=== PATIENT | male | born 1975 | race Caucasian/White ===

== ENCOUNTER 2017-02-25 12:59 | Observation (INO) | payer BC ==
--- NOTE | 2017-02-25 13:09 | CPEKG ---
Heart Rate: 119 RR Interval: 504 P-R Interval: 176 QRSD Interval: 122 QT Interval: 368 QTC Interval: 518 P [place]: 164 QRS [place]: 74 T Wave [place]: 50 EKG Severity - ABNORMAL ECG - EKG Impression: SINUS OR ECTOPIC ATRIAL TACHYCARDIA EKG Impression: RIGHT BUNDLE BRANCH BLOCK EKG Impression: CONSIDER LEFT VENTRICULAR HYPERTROPHY Electronically Signed By: Darlin Abrams 25-Feb-2017 20:04:28
[2017-02-25] MEDS ORDERED: ASPIRIN 81 MG CHEWABLE TAB PO ONE (13:27)
[2017-02-25] MEDS ORDERED: NS 500 ML IV ONE (13:27)
--- NOTE | 2017-02-25 13:27 | EDPHY ---
H & P Time Seen by Provider: 02/25/17 13:19 HPI/ROS: CHIEF COMPLAINT: "Atrial fibrillation " HISTORY OF PRESENT ILLNESS: Patient is a 41-year-old male with a history of paroxysmal atrial fibrillation. Patient has been followed by Dr. Crenshaw. He initially was treated with metoprolol but it had no affect. The patient states that on the metoprolol his frequency of atrial fibrillation actually increased. The patient went to see a physician in [place] for a 2nd opinion. He was prescribed flecainide on Tuesday. This morning he woke from sleep and then developed palpitations while laying down. He describes a "fish flopping in my chest. "The patient took flecainide 100 mg x2 tablets at 9:30 a.m. for the 1st time. This is as prescribed. Patient went to work and subsequently went for a walk at [facility]. He continued to have palpitations but while at [facility] his heart rate increased. He became lightheaded and dizzy. He denies chest pain or shortness of breath. No fevers or chills. No cough. REVIEW OF SYSTEMS: My complete review of systems is negative except as mentioned in the HPI. Past Medical/Surgical History: Includes atrial fibrillation Past surgical history: Includes clavicular surgery Social history: The patient does not smoke. No alcohol use. No drug use. He drank coffee this morning. Smoking Status: Never smoked Physical Exam: Vitals noted GENERAL: Well-appearing, in no acute distress, alert. HEENT: Eyes normal to inspection, normal pharynx, no signs of dehydration. NECK: No thyromegaly, no lymphadenopathy, supple. RESPIRATORY: Clear to auscultation bilaterally, no rales, rhonchi or wheezing. CVS: Regular rhythm and tachycardic, no rubs, murmurs, or gallops. ABDOMEN: Soft, nontender, nondistended, no organomegaly. BACK: Normal to inspection, no CVA tenderness. SKIN: Normal color, no rash, warm, dry. No pallor. EXTREMITIES: No pedal edema, no calf tenderness, no Homans sign or cords, no joint swelling. NEURO/PSYCH: Alert and oriented x3, normal mood and affect, normal motor sensory exam. No obvious cranial nerve deficit. Constitutional: Initial Vital Signs Temperature (C) 36.7 C 02/25/17 12:59 Heart Rate 120 H 02/25/17 12:59 Respiratory Rate 13 02/25/17 12:59 Blood Pressure 124/96 H 02/25/17 12:59 O2 Sat (%) 100 02/25/17 12:59 O2 Delivery Mode Nasal Cannula O2 (L/minute) 2 Allergies/Adverse Reactions: No Known Allergies Allergy (Unverified 05/06/13 09:31) Home Medications: Medication Instructions Recorded Aspirin [Aspirin 81mg (*)] 81 mg PO DAILY 02/25/17 Flecainide Acetate [Tambocor] 100 mg PO BID PRN 02/25/17 Herbals/Supplements -Info Only 1 ea PO DAILY 02/25/17 Medical Decision Making - Diagnostics Imaging Results: Imaging Impressions Chest X-Ray 02/25/17 13:27 Impression: 1. Clear lungs. No acute process. 2. Borderline cardiomegaly. ED Course/Re-evaluation: In the emergency department I discussed possible etiologies with the patient. I answered all his questions. EKG was obtained. Laboratory studies were ordered. Patient was given aspirin 324 mg orally. An old EKG was obtained. Cardiology. EKG: Regular rhythm at 119 a.m.. Normal axis. Right bundle branch block. ST elevation in II, III, AVF, V3-4 Patient was given aspirin 324 mg orally. 1330: I discussed the case with Cardiology (Park). They are reviewing EKG. I rechecked the patient. He is sitting comfortably in the bed. He has no chest pain. I discussed the plan and answered his questions. 1345: I was still waiting on a call back from Cardiology. I re-paged Cardiology and spoke with Dr. Meza. I sent him a picture of the EKG. He stated he had not seen the EKG or heard about the patient at this point. I updated the patient. No CP. 1357: Again discussed the case with Dr. meza. He recommends the patient received metoprolol 5 mg IV. He is aware of the flecainide and the patient's previous treatment with metoprolol. He also recommends an echocardiogram. He does not feel the patient needs to be taken directly to the cardiac catheterization lab at this point. This was ordered. Patient was given the metoprolol and his heart rate remained in the 120s. His troponin was negative. CBC chemistry normal. Repeat EKG: Regular rhythm at 1:21 a.m.. Incomplete right bundle-branch block with the QRS of 114. Ongoing ST elevation as with previous EKG. I discussed the case with the hospitalist service. Dr. Antoine will admit. Cardiac echo pending. I discussed the case with Park from cardiology. She was in the ED to evaluate the patient. Differential Diagnosis: My differential includes but is not limited to ACS, acute AR, atrial fibrillation, dysrhythmia, medication reaction, electrolyte abnormality, sugar abnormality Critical Care Time: The patient required 35 minutes of critical care time. This is exclusive of any unbundled procedure. This was due to the patient's need for frequent rechecks, abnormal EKG, consultation with Cardiology and Internal Medicine. - Data Points Laboratory Results: Laboratory Results 02/25/17 13:20 02/25/17 13:20 02/25/17 02/25/17 02/25/17 13:20 13:20 13:20 WBC 6.55 10^3/uL 10^3/uL (3.80-9.50) RBC 5.32 10^6/uL 10^6/uL (4.40-6.38) Hgb 17.4 g/dL g/dL (13.7-17.5) Hct 49.3 % % (40.0-51.0) MCV 92.7 fL fL (81.5-99.8) MCH 32.7 pg pg (27.9-34.1) MCHC 35.3 g/dL g/dL (32.4-36.7) RDW 12.8 % % (11.5-15.2) Plt Count 236 10^3/uL 10^3/uL (150-400) MPV 9.6 fL fL (8.7-11.7) Neut % (Auto) 54.5 % % (39.3-74.2) Lymph % (Auto) 35.9 % % (15.0-45.0) [place] % (Auto) 7.5 % % (4.5-13.0) Eos % (Auto) 1.1 % % (0.6-7.6) Baso % (Auto) 0.8 % % (0.3-1.7) Nucleat RBC Rel Count 0.0 % % (0.0-0.2) Absolute Neuts (auto) 3.58 10^3/uL 10^3/uL (1.70-6.50) Absolute Lymphs (auto) 2.35 10^3/uL 10^3/uL (1.00-3.00) Absolute Monos (auto) 0.49 10^3/uL 10^3/uL (0.30-0.80) Absolute Eos (auto) 0.07 10^3/uL 10^3/uL (0.03-0.40) Absolute Basos (auto) 0.05 10^3/uL 10^3/uL (0.02-0.10) Absolute Nucleated RBC 0.00 10^3/uL 10^3/uL (0-0.01) Immature Gran % 0.2 % % (0.0-1.1) Immature Gran # 0.01 10^3/uL 10^3/uL (0.00-0.10) PT 13.3 SEC SEC (12.0-15.0) INR 1.02 (0.83-1.16) APTT 27.8 SEC SEC (23.0-38.0) D-Dimer < 0.27 ug/mLFEU ug/mLFEU (0.00-0.50) Sodium 143 mEq/L mEq/L (134-144) Potassium 4.3 mEq/L mEq/L (3.5-5.2) Chloride 105 mEq/L mEq/L (97-110) Carbon Dioxide 24 mEq/l mEq/l (22-31) Anion Gap 14 mEq/L mEq/L (8-16) BUN 18 mg/dL mg/dL (7-23) Creatinine 1.0 mg/dL mg/dL (0.7-1.3) Estimated GFR > 60 Glucose 100 mg/dL mg/dL (70-100) Calcium 9.1 mg/dL mg/dL (8.5-10.4) Troponin I < 0.012 ng/mL ng/mL (0.000-0.034) Medications Given: Discontinued Medications Aspirin (Aspirin) 324 mg PO EDNOW ONE Stop: 02/25/17 13:28 Last Admin: 02/25/17 13:40 Dose: 324 mg Sodium Chloride (Ns) 500 mls @ 1,000 mls/hr IV EDNOW ONE PRN Reason: Protocol Stop: 02/25/17 13:56 Last Admin: 02/25/17 13:39 Dose: 500 mls Metoprolol Tartrate (Lopressor Injection) 5 mg IVP Q5M [facility] Stop: 02/25/17 14:11 Last Admin: 02/25/17 14:32 Dose: Not Given Departure - Departure Disposition: [facility] Inpatient Acute Clinical Impression: Palpitations, Tachycardia, Abnormal EKG Condition: Good
[2017-02-25 13:33] LABS: % IMMATURE GRANULYOCYTES 0.2 % (0.0-1.1); ABSOLUTE IMMATURE GRANULOCYTES 0.01 10^3/uL (0.00-0.10); ADD DIFF? NO; ADD MORPH? NO; ADD SCAN? NO; ATYPICAL LYMPHOCYTE FLAG 10 (0-99); FRAGMENT RBC FLAG 0 (0-99); HEMATOCRIT 49.3 % (40.0-51.0); HEMOGLOBIN 17.4 g/dL (13.7-17.5); LEFT SHIFT FLG 0 (0-99); LIPEMIA HEMOLYSIS FLAG 90 (0-99); MEAN CELL HEMOGLOBIN 32.7 pg (27.9-34.1); MEAN CELL HEMOGLOBIN CONCENTR. 35.3 g/dL (32.4-36.7); MEAN CELL VOLUME 92.7 fL (81.5-99.8); MEAN PLATELET VOLUME 9.6 fL (8.7-11.7); PLATELET CLUMPS FLAG 0 (0-99); PLATELET COUNT 236 10^3/uL (150-400); RED BLOOD CELL COUNT 5.32 10^6/uL (4.40-6.38); RED CELL DISTRIBUTION WIDTH 12.8 % (11.5-15.2)
[2017-02-25 13:39] LABS: ANION GAP 14 mEq/L (8-16); CALCIUM 9.1 mg/dL (8.5-10.4); CARBON DIOXIDE 24 mEq/l (22-31); CHLORIDE 105 mEq/L (97-110); GLOMERULAR FILTRATION RATE > 60; GLUCOSE 100 mg/dL (70-100); POTASSIUM 4.3 mEq/L (3.5-5.2); SODIUM 143 mEq/L (134-144)
[2017-02-25 13:42] LABS: APTT 27.8 SEC (23.0-38.0); INR 1.02 (0.83-1.16); PROTIME(PATIENT) 13.3 SEC (12.0-15.0)
[2017-02-25 13:50] LABS: TROPONIN I < 0.012 ng/mL (0.000-0.034)
[2017-02-25] MEDS: METOPROLOL TARTRATE 5 MG/5 ML INJ IVP SCH ×2 (14:09→14:32)
--- NOTE | 2017-02-25 14:44 | CPEKG ---
Heart Rate: 121 RR Interval: 496 QRSD Interval: 114 QT Interval: 352 QTC Interval: 500 QRS [place]: 64 T Wave [place]: 17 EKG Severity - ABNORMAL ECG - EKG Impression: A-FLUTTER W/ VARIED AV BLOCK, A-RATE 241 EKG Impression: INCOMPLETE RIGHT BUNDLE BRANCH BLOCK EKG Impression: LEFT VENTRICULAR HYPERTROPHY Electronically Signed By: Darlin Abrams 25-Feb-2017 20:04:28
[2017-02-25] MEDS ORDERED: DILTIAZEM 125 MG in D5W 125 ML IV SCH (15:30)
[2017-02-25] MEDS ORDERED: FLECAINIDE ACETATE 100 MG TAB PO PRN (15:45)
[2017-02-25] MEDS ORDERED: oxyCODONE IR 5 MG TAB PO PRN (15:46)
[2017-02-25] MEDS ORDERED: ONDANSETRON 4 MG/2 ML VIAL IVP PRN (15:46)
[2017-02-25] MEDS ORDERED: ONDANSETRON DISINTEGRATING 4 MG TAB PO PRN (15:46)
[2017-02-25] MEDS ORDERED: ALBUTEROL 3 ML DEYVIAL IH PRN (15:46)
[2017-02-25] MEDS ORDERED: ACETAMINOPHEN 325 MG TAB PO PRN (15:46)
--- NOTE | 2017-02-25 16:14 | ECHO ---
[email or web address] [address] [address] Main: [phone] Fax: [email or web address] Echocardiogram Name: DANYELLE CAMACHO MR#: [id number] Study Date: 02/25/2017 Study Time: 03:26 PM Date of : 1975 Age: 41 year(s) Height: 177.8 cm (70 in.) Weight: 74.84 kg (165 lb.) BSA: 1.92 m2 Gender: Male Examination: Echo Indication: Atrial Flutter Image Quality: Contrast: Requested by: Darlin Abrams BP: 115 mmHg/60 mmHg Heart Rate: Rhythm: Atrial flutter Indication: Atrial Flutter Procedure Staff Dye Weigher: [place] Reading Physician: Stoney Han Requesting Provider: Conclusions: Low normal left ventricular systolic function. EF is 54 %. Mild to moderate mitral regurgitation. The aortic valve is normal in appearance and function. No pericardial effusion. Measurements: Chambers Valvular Assessment AV/MV Valvular Assessment TV/PV Normal Normal Normal Name Value Range Name Value Range Name Value Range IVSd (2D): 1.4 cm (0.6 cm-1.1 AV Vmax: 0.86 m/s (1 m/s-1.7 TR Vmax: 1.49 mm/s ( - ) cm) m/s) TR PGmax: 9 mmHg ( - ) LVDd (2D): 4.7 cm (4.2 cm-5.9 AV maxP mmHg ( - ) PV Vmax: 0.56 m/s (0.6 m/s-0.9 cm) LVOT Vmax: 0.68 m/s (0.7 m/s-1.1 m/s) LVDs (2D): 3.5 cm (2.1 cm-4 m/s) PV PGmax: 1 mmHg ( - ) cm) LVPWd (2D): 1.4 cm (0.6 cm-1 cm) LVEF (BP): 54 % (>=55 %) RVDd(2D): 4.0 cm (1.9 cm-3.8 cmmm) Continued Measurements: Chambers Name Value LADs Lon.0 cm LA Area: 22.8 cm2 LA Volume: 86 ml LA Volume Index: 44.8 ml/m2 Patient: DANYELLE CAMACHO Study Date: 02/25/2017 Page 1 of 2 03:26 PM TAPSE: 1.3 cm RA Area: 19.0 cm2 Additional Vessels Name Value Ao Ascendin.7 cm Findings: Left Ventricle: Normal size left ventricle. Mild to moderate LVH. Low normal left ventricular systolic function. EF is 54 %. No regional wall motion abnormality. Unable to assess diastolic dysfunction. Heavily trabeculated LV and prominient papillary muscles. Flase tendon noted.. Right Ventricle: Upper normal size right ventricle. Normal RV function. Left Atrium: The left atrium is moderately dilated. Right Atrium: The right atrium is mildly dilated. Mitral Valve: The mitral valve is normal in appearance. There is mild thickening of the mitral valve leaflets. Mild to moderate mitral regurgitation. Aortic Valve: The aortic valve is normal in appearance and function. The aortic valve is tri-leaflet. There is no aortic valve regurgitation. No aortic valve stenosis is present. Tricuspid Valve: The tricuspid valve appears normal. Trivial tricuspid valve regurgitation. Pulmonary artery pressure is not obtained due to inadequate TR jet. Pulmonic Valve: The pulmonic valve is normal in appearance and function. Aorta: Normal size ascending aorta measuring 3.7 cm. Pericardium: No pericardial effusion. (No Signature Object) Patient: DANYELLE CAMACHO Study Date: 02/25/2017 Page 2 of 2 03:26 PM [id number]
--- NOTE | 2017-02-25 16:56 | PDGENHP ---
History and Physical - Chief Complaint palpitations - History of Present Illness Patient is a 41-year-old male with a history of paroxysmal atrial fibrillation x 3 years. Patient is followed by Dr. Crenshaw. In the past he reports being treated with metoprolol but it had no effect. The patient states that on the metoprolol his frequency of atrial fibrillation actually increased. The patient went to see a physician in [place] for a 2nd opinion prescribed flecainide on Tuesday PRN Afib. This morning he woke from sleep and was in Afib and took Flecainide which he reports made him worse. He denies chest pain or shortness of breath. No fevers or chills. No cough. In the E.D., Cards was consulted. He was initially started on Metoprolol IV and then Cardizem IV. He is still tachycardic which appears to be sinus tach. He no longer reports palpitations or fluttering. Trop Negative. HR: 120's No Resp sx's No hx of ETOH No hx of Hyperthyroidism No illicit drug use No tobacco use No significant caffeine use, although he had coffee this morning TTE is pending PMHX: atrial fibrillation Past surgical history: Includes clavicular surgery Social history: The patient does not smoke. No alcohol use. No drug use. FMHX: RI History Information - Allergies/Home Medication List Allergies/Adverse Reactions: No Known Allergies Allergy (Unverified 05/06/13 09:31) Home Medications: Aspirin [Aspirin 81mg (*)] 81 mg PO DAILY 02/25/17 [Last Taken 02/25/17] Flecainide Acetate [Tambocor] 100 mg PO BID PRN 02/25/17 [Last Taken 02/25/17] Herbals/Supplements -Info Only 1 ea PO DAILY 02/25/17 [Last Taken Unknown] I have personally reviewed and updated: medical history, social history - Social History Smoking Status: Never smoked Review of Systems Review of Systems: ROS: 10pt was reviewed & negative except for what was stated in HPI & below Physical Exam Physical Exam: Temp Pulse Resp BP Pulse Ox 36.9 C 124 H 17 100/78 97 02/25/17 16:35 02/25/17 16:35 02/25/17 16:35 02/25/17 16:35 02/25/17 16:35 O2 (L/minute) 2 Constitutional: no apparent distress, appears nourished Eyes: PERRL, EOMI Ears, Nose, Mouth, Throat: moist mucous membranes, hearing normal Cardiovascular: tachycardia, No JVD, No edema Respiratory: no respiratory distress, no rales or rhonchi, clear to auscultation Gastrointestinal: normoactive bowel sounds, soft, non-tender abdomen Skin: warm Musculoskeletal: full muscle strength Neurologic: AAOx3 Psychiatric: interacting appropriately, not anxious, not encephalopathic Lab Data & Imaging Review 02/25/17 13:20 02/25/17 13:20 WBC 6.55 10^3/uL (3.80-9.50) 02/25/17 13:20 RBC 5.32 10^6/uL (4.40-6.38) 02/25/17 13:20 Hgb 17.4 g/dL (13.7-17.5) 02/25/17 13:20 Hct 49.3 % (40.0-51.0) 02/25/17 13:20 MCV 92.7 fL (81.5-99.8) 02/25/17 13:20 MCH 32.7 pg (27.9-34.1) 02/25/17 13:20 MCHC 35.3 g/dL (32.4-36.7) 02/25/17 13:20 RDW 12.8 % (11.5-15.2) 02/25/17 13:20 Plt Count 236 10^3/uL (150-400) 02/25/17 13:20 MPV 9.6 fL (8.7-11.7) 02/25/17 13:20 Neut % (Auto) 54.5 % (39.3-74.2) 02/25/17 13:20 Lymph % (Auto) 35.9 % (15.0-45.0) 02/25/17 13:20 [place] % (Auto) 7.5 % (4.5-13.0) 02/25/17 13:20 Eos % (Auto) 1.1 % (0.6-7.6) 02/25/17 13:20 Baso % (Auto) 0.8 % (0.3-1.7) 02/25/17 13:20 Nucleat RBC Rel Count 0.0 % (0.0-0.2) 02/25/17 13:20 Absolute Neuts (auto) 3.58 10^3/uL (1.70-6.50) 02/25/17 13:20 Absolute Lymphs (auto) 2.35 10^3/uL (1.00-3.00) 02/25/17 13:20 Absolute Monos (auto) 0.49 10^3/uL (0.30-0.80) 02/25/17 13:20 Absolute Eos (auto) 0.07 10^3/uL (0.03-0.40) 02/25/17 13:20 Absolute Basos (auto) 0.05 10^3/uL (0.02-0.10) 02/25/17 13:20 Absolute Nucleated RBC 0.00 10^3/uL (0-0.01) 02/25/17 13:20 Immature Gran % 0.2 % (0.0-1.1) 02/25/17 13:20 Immature Gran # 0.01 10^3/uL (0.00-0.10) 02/25/17 13:20 PT 13.3 SEC (12.0-15.0) 02/25/17 13:20 INR 1.02 (0.83-1.16) 02/25/17 13:20 APTT 27.8 SEC (23.0-38.0) 02/25/17 13:20 D-Dimer < 0.27 ug/mLFEU (0.00-0.50) 02/25/17 13:20 Sodium 143 mEq/L (134-144) 02/25/17 13:20 Potassium 4.3 mEq/L (3.5-5.2) 02/25/17 13:20 Chloride 105 mEq/L (97-110) 02/25/17 13:20 Carbon Dioxide 24 mEq/l (22-31) 02/25/17 13:20 Anion Gap 14 mEq/L (8-16) 02/25/17 13:20 BUN 18 mg/dL (7-23) 02/25/17 13:20 Creatinine 1.0 mg/dL (0.7-1.3) 02/25/17 13:20 Estimated GFR > 60 02/25/17 13:20 Glucose 100 mg/dL (70-100) 02/25/17 13:20 Calcium 9.1 mg/dL (8.5-10.4) 02/25/17 13:20 Magnesium 2.2 mg/dL (1.6-2.3) 02/25/17 Unknown Troponin I < 0.012 ng/mL (0.000-0.034) 02/25/17 13:20 Assessment & Plan Assessment: #Afib/Aflutter #Abnormal EKG (Acute), ?ST elevation, No CP, No elevated troponin #Palpitations Plan: Observation Cards consulted, await reccs Cont cardizem IV TTE is pending 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
--- NOTE | 2017-02-25 22:49 | GCON ---
[f rep st] CONSULTATION DATE OF CONSULTATION: 02/25/2017 REASON FOR CONSULTATION: We were asked by Dr. Abrams of the emergency department to evaluate this patient for his atrial flutter. HISTORY OF PRESENT ILLNESS: The patient is a 41-year-old male with a history of paroxysmal atrial fibrillation and flutter. He has been seen by Dr. Crenshaw in our office. More recently, he had seen Dr. Caceres with [facility] who had recommended a rilp-vm-xfubha approach with flecainide. This morning, he awoke at approximately 5 a.m. and noted that he was in flutter. He proceeded to take 200 mg of flecainide. He then started to note lightheadedness. He continued to note palpitations. He presented to the emergency department and was found to be in atrial flutter with rapid ventricular rates. He denies any chest pains or vinay syncope. Typically, his A-flutter episodes are much shorter and this is the only one, to his recollection, that has lasted several hours. PAST MEDICAL HISTORY: 1. Atrial flutter. 2. Paroxysmal atrial fibrillation. 3. Patellar tendinitis. REVIEW OF SYSTEMS: As per HPI. A complete 10-point review of systems was obtained and is negative except for what is dictated. MEDICATIONS: Outpatient medications include flecainide and aspirin. ALLERGIES: No known drug allergies. FAMILY HISTORY: There is no significant family history of coronary artery disease. SOCIAL HISTORY: Patient is . He denies any significant alcohol use. He is a nonsmoker. PAST SURGICAL HISTORY: Clavicular surgery. PHYSICAL EXAMINATION: VITAL SIGNS: BP of 112/93, heart rate of 124, respirations 17, O2 saturation 100% on 2 L/minute, temperature of 97.7 degrees Fahrenheit. GENERAL: He is a very pleasant male in no apparent distress. HEENT: Head is normocephalic, atraumatic. Eyes are without scleral icterus. Mucous membranes are moist. HEART: Tachycardic with a 2/6 to 3/6 systolic ejection murmur. LUNGS: Clear. ABDOMEN: Soft with normoactive bowel sounds. SKIN: Warm and dry. PSYCH: Normal mood and affect for given situation. NEURO: No focal deficits detected. LABORATORY: CBC with WBC 6.55, hemoglobin 17.4, hematocrit 49.3, platelet count 236. BMP with sodium 143, potassium 4.3, chloride 105, CO2 of 24, BUN 18 , creatinine 1, glucose of 100. Troponin less than 0.012. D-dimer less than 0.27. A 12-lead ECG, personally interpreted, demonstrates atrial flutter with a 2:1 conduction, LVH by voltage, and an incomplete right bundle branch block. Chest x-ray shows no acute process. I spoke with Dr. Abrams regarding patient' s care. IMPRESSION AND PLAN: The patient is a 41-year-old male presenting to the emergency department with atrial flutter starting likely this morning. He has tried a ovhf-dn-vrxjef approach with flecainide, which failed to convert him to sinus rhythm. He will be admitted for observation and rate control. He is being started on a diltiazem drip at this point. His [id number] is 0 and therefore, he may be continued on only aspirin therapy. He may follow up with electrophysiology as an outpatient to discuss whether he would be an ablation candidate. /[id number]/MODL MTDD
[2017-02-26 06:25] LABS: % IMMATURE GRANULYOCYTES 0.2 % (0.0-1.1); ABSOLUTE IMMATURE GRANULOCYTES 0.01 10^3/uL (0.00-0.10); ADD DIFF? NO; ADD MORPH? NO; ADD SCAN? NO; ATYPICAL LYMPHOCYTE FLAG 20 (0-99); FRAGMENT RBC FLAG 0 (0-99); HEMATOCRIT 47.7 % (40.0-51.0); HEMOGLOBIN 16.4 g/dL (13.7-17.5); LEFT SHIFT FLG 0 (0-99); LIPEMIA HEMOLYSIS FLAG 90 (0-99); MEAN CELL HEMOGLOBIN 31.7 pg (27.9-34.1); MEAN CELL HEMOGLOBIN CONCENTR. 34.4 g/dL (32.4-36.7); MEAN CELL VOLUME 92.3 fL (81.5-99.8); MEAN PLATELET VOLUME 9.3 fL (8.7-11.7); PLATELET CLUMPS FLAG 0 (0-99); PLATELET COUNT 218 10^3/uL (150-400); RED BLOOD CELL COUNT 5.17 10^6/uL (4.40-6.38); RED CELL DISTRIBUTION WIDTH 12.5 % (11.5-15.2)
[2017-02-26 06:50] LABS: ANION GAP 10 mEq/L (8-16); CALCIUM 9.3 mg/dL (8.5-10.4); CARBON DIOXIDE 23 mEq/l (22-31); CHLORIDE 109 mEq/L (97-110); GLOMERULAR FILTRATION RATE > 60; GLUCOSE 88 mg/dL (70-100); POTASSIUM 4.3 mEq/L (3.5-5.2); SODIUM 142 mEq/L (134-144)
[2017-02-26 08:29] VITALS: TEMP 98.2
[2017-02-26] MEDS ORDERED: ATROPINE SULFATE 1 MG/10 ML SYR IVP ONE (08:50)
[2017-02-26] MEDS ORDERED: NS 1,000 ML IV ONE (08:50)
[2017-02-26] MEDS ORDERED: NS 500 ML IV ONE (08:53)
[2017-02-26] MEDS ORDERED: ENOXAPARIN 40 MG/0.4 ML SYR SC SCH (09:00)
[2017-02-26] MEDS ORDERED: APIXABAN 5 MG TAB PO SCH (09:00)
[2017-02-26] MEDS ORDERED: ASPIRIN 81 MG CHEWABLE TAB PO SCH (09:00)
--- NOTE | 2017-02-26 09:57 | PDCARPN ---
Cardiology Progress Note Chief Complaint: Patient report lightheadedness and fatigue Assessment/Plan: Assessment: 41-year-old male with history of paroxysmal atrial fibrillation, and atrial flutter. In past has been seen by Dr. Crenshaw of our electrophysiology services in the past, more recently seen by electrophysiology Services in [place]. They had instituted him on flecainide pill in the pocket approach for controlling AFib. Yesterday reporting around 6:00 a.m., feeling heart rate racing, shortness of breath, lightheadedness, similar symptoms of when he was in AFib in the past. Took flecainide , with no resolution symptoms, reporting significant lightheadedness, near-syncope, came to the emergency department. Found to be in atrial flutter with rapid ventricular response. Echocardiogram done 02/25 showing normal LV size, [id number] LVH, low normal LV systolic function with EF 54% with no regional wall motion abnormalities. LA was mildly dilated, RA is mildly dilated, [id number] MR. laboratory studies drawn in the emergency department showing no anemia, negative D-dimer, normal electrolyte and renal function. Patient has had 3 troponin levels drawn, all within normal limits. TSH level on 02/26 was 0.801 Patient started on diltiazem drip, with rate control in the emergency department, per nursing staff, diltiazem titrate to off last night. This morning, a flutter rate up to 130s, reinstituted on diltiazem, patient noted to be hypotensive with systolic blood pressure down to 79. Patient reporting lightheadedness, shortness of breath, denying of chest pain or pressure. Physical examination, no signs of heart failure. Plan: 1. Persistent atrial flutter: Patient has been maintaining atrial flutter for greater than 24 hours, despite medical therapy, has not self converted back into sinus rhythm. With faster ventricular rates , is noted to be hypotensive, and lightheaded. After discussing with Dr. North, is felt best that patient be scheduled for urgent DOTTIE/cardioversion. Risks and benefits of this procedure were explained to the patient, he verbalizes understanding, and is wanting to proceed. After cardioversion, I would consider placing patient on diltiazem orally for maintenance dosage. As for long-term , I do think it would be beneficial for him to either be seen by Dr. Crenshaw or his shaker tender in [place] as an outpatient, with consideration of further evaluation EP procedure or be placed on long-term antiarrhythmics. He does have a chads Vasc score of 1 , but with cardioversion, and being placed at a higher risk for thrombotic event within the 1st 3-4 weeks, we will place him on anticoagulation of Eliquis. Risks and benefits of full anticoagulation therapy and Eliquis discussed with the patient, he verbalizes understanding to proceed. 2. Hypotension: Patient noted to be mildly hypotensive this morning with fast ventricular rates in atrial flutter. I have ordered for him to get a 1 time 500 mL IV fluid bolus. Will continue him on diltiazem drip to help reduce his rate. Plan DOTTIE/CV as mentioned above. 3. Moderate MR: Patient appears to be fairly euvolemic, potentially MR was worsen with his atrial flutter, cardioversion as mentioned above. Consideration repeating echo in 6 months to year. Sooner if he becomes symptomatic. 02/26/17 09:54 Subjective: Denies any cp. Report some SOB, lightheadedness and fatigue. Denies symptoms suggestives TIA/CVA Reviewed/Discussed With: hospitalist (Dr Black), other (Dr North) Objective: Vital Signs (8 Hrs) Temp Pulse Resp BP Pulse Ox 02/26/17 08:20 36.8 C 135 H 16 79/52 L 96 02/26/17 06:38 133 H 02/26/17 04:00 36.5 C 116 H 18 106/65 98 Intake/Output (24 Hrs) 02/25/17 02/26/17 02/27/17 05:59 05:59 05:59 Intake Total 465 Balance 465 Intake: Oral (ml) 450 IV Infused (ml) 15 Diltiazem 125 mg In D5w 15 125 ml @ Per Protocol IV CONT ELIANA Rx#:[id number] Other: Weight 74.843 kg Number of Voids Toilet 1 Result Diagrams: 02/26/17 06:17 02/26/17 06:17 Cardiac Labs: Cardiac Lab Results (72 Hrs) 02/25/17 02/25/17 23:50 19:18 Troponin I 0.016 0.013 - Physical Exam Constitutional: WDWN, healthy appearing, no apparent distress Ears, Nose, Mouth, Throat: moist mucous membranes Cardiovascular: no murmurs, irregularly irregular (A-flutter), pulses symmetric bilat, No jugular vein distention Peripheral Pulses: 2+: carotid (R), carotid (L), dorsalis-pedis (R), dorsalis- pedis (L) Respiratory: clear to auscultate bilat, no crackles, no wheezes Gastrointestinal: normoactive bowel sounds Skin: no rashes, warm, no edema Neurologic: AAOx3 Psychiatric: cooperative, following commands, anxious ICD10 Worksheet Patient Problems: Problems Problem Status Onset Palpitations Acute Tachycardia Acute Abnormal EKG Acute
[2017-02-26] MEDS ORDERED: PROPOFOL/EMULSION 500 MG/50 ML BOTTLE IV ONE (10:55)
--- NOTE | 2017-02-26 11:12 | PDANEPAE ---
ANE History of Present Illness 41 year old male w/ a. fib/flutter for DOTTIE/CV. ANE Past Medical History - Cardiovascular History Hx Hypertension: No Hx Arrhythmias: Yes Hx Chest Pain: No Hx Coronary Artery / Peripheral Vascular Disease: No Hx CHF / Valvular Disease: Yes Hx Palpitations: Yes - Pulmonary History Hx COPD: No Hx Asthma/Reactive Airway Disease: No Hx Recent Upper Respiratory Infection: No Hx Oxygen in Use at Home: No Hx Sleep Apnea: No - Endocrine History Hx Diabetes: No Hypothyroid: No Hyperthyroid: No Obesity: no - Renal History Hx Renal Disorders: No - Liver History Hx Hepatic Disorders: No - Neurological & Psychiatric Hx Hx Neurological and Psychiatric Disorders: No - Cancer History Hx Cancer: No - Congenital Disorder History Hx Congenital Disorders: No - GI History GERD: no Hx Gastrointestinal Disorders: No ANE Review of Systems Review of systems is: negative Review of Systems: - Exercise capacity Exercise capacity: >=4 METS ANE Patient History - Allergies Allergies/Adverse Reactions: No Known Allergies Allergy (Unverified 05/06/13 09:31) - Home Medications Home medications: home medication list seen and reviewed Home Medications: Aspirin [Aspirin 81mg (*)] 81 mg PO DAILY 02/25/17 [Last Taken 02/25/17] Flecainide Acetate [Tambocor] 100 mg PO BID PRN 02/25/17 [Last Taken 02/25/17] Herbals/Supplements -Info Only 1 ea PO DAILY 02/25/17 [Last Taken Unknown] - NPO status NPO Status: no food or drink >8 hours - Anes Hx Anes Hx: no prior problems - Smoking Hx Smoking Status: Never smoked Marijuana use: No - Alcohol Use Alcohol Use: None - Family Anes Hx Family Anes Hx: neg - N/A ANE Labs/Vital Signs - Labs Result Diagrams: 02/26/17 06:17 02/26/17 06:17 - Vital Signs Vital Signs: reviewed preoperatively; see RN documention for details Blood Pressure: 79/52 Heart Rate: 135 Respiratory Rate: 16 O2 Sat (%): 96 Height: 177.8 cm Weight: 74.843 kg ANE Physical Exam - Airway Neck exam: FROM Mallampati Score: Class 2 Mouth exam: normal dental/mouth exam - Pulmonary Pulmonary: no respiratory distress - Cardiovascular Cardiovascular: irregularly irregular - ASA Status ASA Status: III ANE Anesthesia Plan Anesthesia Plan: GA with mask Total IV Anesthesia: Yes
--- NOTE | 2017-02-26 11:44 | PDTEE1 ---
DOTTIE Cardioversion Procedure Indications: atrial fibrillation Consent: signed and in chart Anticoagulation: álvaro Procedural Details: Pads were placed in anterior-posterior position. DOTTIE probe was advanced and standard images obtained. There is no evidence of left atrial or left atrial appendage thrombus. Conclusions: successful DOTTIE (The patient converted to NSR during intubation with the DOTTIE probe.) Patient Problems: Problems Problem Status Onset Abnormal EKG Acute Palpitations Acute Tachycardia Acute
--- NOTE | 2017-02-26 12:01 | POSTANESTH ---
Post Anesthetic Evaluation Cardiovascular Status: Normal, Stable, Similar to Pre-Op Cond Respiratory Status: Normal, Stable, Similar to Pre-op Cond. Level of Consciousness/Mental Status: Can Participate in Eval, Alert and Oriented Pain Control: Adequate, Prn Tx Ordered Nausea/Vomiting Control: Adequate, Prn Tx Ordered Complications Possibly Related to Anesthesia: None Noted (Likely discharge home today.)
--- NOTE | 2017-02-26 12:04 | CPEKG ---
Heart Rate: 59 RR Interval: 1017 P-R Interval: 192 QRSD Interval: 100 QT Interval: 440 QTC Interval: 436 P [place]: 26 QRS [place]: 63 T Wave [place]: 37 EKG Severity - ABNORMAL ECG - EKG Impression: SINUS RHYTHM EKG Impression: LEFT VENTRICULAR HYPERTROPHY EKG Impression: ANTERIOR ST ELEVATION, PROBABLY DUE TO LVH Electronically Signed By: Andrei Lovell 28-Feb-2017 11:52:23
--- NOTE | 2017-02-26 14:13 | GDS ---
[f rep st] DISCHARGE SUMMARY FINAL DIAGNOSES: 1. Paroxysmal atrial fibrillation and flutter, presented with rapid ventricular response. 2. Mitral regurgitation. 3. [id number] left ventricular hypertrophy. HOSPITAL COURSE: A 41-year-old man who presented with palpitations. He has a history of paroxysmal atrial fibrillation. He has seen Dr. Crenshaw here and went to see a second side laster staple in [place] for a second opinion. He was given flecainide as a enpo-na-jar-pocket strategy, which made him feel very poorly; thus, he presented to the emergency department. He was placed on a diltiazem drip over night. Cardiology recommended DOTTIE cardioversion, as he had not converted. During the DOTTIE, he conver maxim on his own. I have discussed all of his plans with Cardiology. We will place him on extended-release diltiazem 120 mg. We will give him Eliquis for 30 days given h is recent conversion. He should follow up with the side laster staple of his choice. This should b e in 1 week. I discussed all of this with both him and his . /[id number]/MODL
--- NOTE | 2017-02-26 14:46 | ASMTCMCOM ---
CM Note CM Note Notes: Pt to DC with no DC needs today. Date Signed: 02/26/2017 02:46 PM Electronically Signed By:Ema Mccarty LCSW
--- NOTE | 2017-02-26 14:53 | ASDISCHSUM ---
Discharge Information Plan Status:Home with No Needs Medically Cleared to Leave:02/26/2017 Discharge Date:02/26/2017 CM D/C Disposition:Home, Routine, Self-Care ADT D/C Disposition:Home, Routine, Self-Care Projected Discharge Date:02/26/2017 Transportation at D/C:Family Discharge Delay Reason: Follow-Up Date:02/26/2017 Discharge Slot:2 - 12:01 pm - 18:00 pm Final Diagnosis:Paraoxysmal afib and aflutter w/ RVR, mitral regurg, mid-mod left ventricular hypert rophy Placement Information Patient Contact Information Contact Name:MAGO Relationship: Address:[address] City:[place] Alternate Phone: State/Zip Code:[place] [address] Email: Financial Information Financial Class:HMO and PPO Plans Primary Plan Desc: OUT [facility] PPO Primary Plan Number:[id number] Secondary Plan Desc: Secondary Plan Number: Assessment Information [facility] CM Progress Note CM Note CM Note Notes: Pt to DC with no DC needs today. Date Signed: 02/26/2017 02:46 PM Electronically Signed By:Ema Mccarty LCSW Intervention Information
[2017-02-26 15:50] VITALS: BP 88/68; PULSE 55; RESP 18; O2SAT 99
[2017-02-26] MEDS ORDERED: DILTIAZEM CD 120 MG CAP PO SCH (22:00)
== END 2017-02-26 14:58 | disposition home or self-care (01) ==
LOC: EDUNIT# → F2W 16:23
PROVIDERS: ADMIT Family Medicine; ATTEND Student in an Organized Health Care Education/Training Program
PROC: B245ZZ4 Ultrasonography of Left Heart, Transesophageal (ICD-10-PCS; principal; 2017-02-25)
DX: I48.92 Unspecified atrial flutter (principal); I48.0 Paroxysmal atrial fibrillation; I34.0 Nonrheumatic mitral (valve) insufficiency; I51.7 Cardiomegaly
CPT/HCPCS: 71010; 93005; 93306; 96360; 99291; G0378; J2704

== ENCOUNTER 2017-03-26 13:37 | Observation (INO) | payer BC ==
[2017-03-26] MEDS ORDERED: ONDANSETRON 4 MG/2 ML VIAL ONE ×2 (14:56→17:42)
[2017-03-26] MEDS ORDERED: fentaNYL 100 MCG/2 ML INJ ONE (14:56)
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
[2017-03-26] MEDS ORDERED: fentaNYL 100 MCG/2 ML INJ IVP ONE ×2 (15:04→15:42)
[2017-03-26] MEDS ORDERED: ONDANSETRON 4 MG/2 ML VIAL IVP ONE (15:04)
[2017-03-26] MEDS ORDERED: NS 1,000 ML IV ONE ×2 (15:04→17:41)
[2017-03-26 15:23] LABS: % IMMATURE GRANULYOCYTES 0.4 % (0.0-1.1); ABSOLUTE IMMATURE GRANULOCYTES 0.06 10^3/uL (0.00-0.10); ADD DIFF? NO; ADD MORPH? NO; ADD SCAN? NO; ATYPICAL LYMPHOCYTE FLAG 0 (0-99); FRAGMENT RBC FLAG 0 (0-99); HEMATOCRIT 46.2 % (40.0-51.0); HEMOGLOBIN 16.3 g/dL (13.7-17.5); LEFT SHIFT FLG 0 (0-99); LIPEMIA HEMOLYSIS FLAG 90 (0-99); MEAN CELL HEMOGLOBIN CONCENTR. 35.3 g/dL (32.4-36.7); MEAN CELL VOLUME 90.6 fL (81.5-99.8); MEAN PLATELET VOLUME 9.4 fL (8.7-11.7); PLATELET CLUMPS FLAG 0 (0-99); PLATELET COUNT 226 10^3/uL (150-400); RED CELL DISTRIBUTION WIDTH 12.5 % (11.5-15.2)
[2017-03-26 15:32] LABS: INR 1.16 (0.83-1.16)
[2017-03-26 15:33] LABS: APTT 26.4 SEC (23.0-38.0)
[2017-03-26 15:37] LABS: ANION GAP 15 mEq/L (8-16); CALCIUM 9.5 mg/dL (8.5-10.4); CARBON DIOXIDE 25 mEq/l (22-31); CHLORIDE 103 mEq/L (97-110); GLOMERULAR FILTRATION RATE > 60; GLUCOSE 119 mg/dL (70-100); POTASSIUM 3.7 mEq/L (3.5-5.2); SODIUM 143 mEq/L (134-144)
[2017-03-26] MEDS ORDERED: LET GEL TOPICAL 1 EA SYR TP ONE (15:50)
[2017-03-26] MEDS ORDERED: HYDROmorphONE/DILAUDID 1 MG/ML INJ IVP ONE ×2 (16:27→17:41)
[2017-03-26] MEDS ORDERED: IOPAMIDOL (ISOVUE-300) 100 ML BTL ONE (16:39)
[2017-03-26 16:43] LABS: CK-MB INTERPRETATION NEGATIVE (NEGATIVE)
[2017-03-26 16:49] LABS: CREATINE KINASE-MB FRACTION 6.48 ng/mL (0.00-3.19)
[2017-03-26] MEDS ORDERED: HYDROmorphONE/DILAUDID 1 MG/ML INJ ONE (17:43)
[2017-03-26] MEDS ORDERED: NALOXONE HCL 0.4 MG/ML INJ IVP PRN (19:23)
[2017-03-26] MEDS ORDERED: ACETAMINOPHEN 325 MG TAB PO PRN (19:23)
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
[2017-03-26] MEDS: FAMOTIDINE 20 MG/NACL 50 ML IV SCH (21:59)
[2017-03-26] MEDS ORDERED: TEMAZEPAM 15 MG CAP PO PRN (23:00)
[2017-03-26] MEDS: HYDROCODONE/APAP 5/325 TAB PO PRN (23:18)
[2017-03-27 07:49] VITALS: BP 135/88; PULSE 68; RESP 18; TEMP 98.3; O2SAT 96
[2017-03-27] MEDS: FAMOTIDINE 20 MG/NACL 50 ML IV SCH (08:02)
[2017-03-27] MEDS: ONDANSETRON 4 MG/2 ML VIAL IVP PRN ×2 (08:02→14:53)
[2017-03-27] MEDS: HYDROCODONE/APAP 5/325 TAB PO PRN ×2 (08:11→12:39)
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
--- NOTE | 2017-03-27 11:39 | SOAPPROG ---
SOAP Progress Note Assessment/Plan: Assessment: tertiary exam: doing well with multiple injuries/ wants to go home heent: perrla, abrasion over nose, neck supple, nontender, occlusion good chest nontender and clear and symmetrical cor rr abd soft, nontender, some left flank abrasion, gi function ok extrem full pulses and rom except left arm in sling for scapular neuro alert, oriented and symmetric Plan:home today 03/27/17 11:35 Objective: Vital Signs Temp Pulse Resp BP Pulse Ox 36.8 C 68 18 135/88 H 96 03/27/17 07:47 03/27/17 07:47 03/27/17 07:47 03/27/17 07:47 03/27/17 07:47 Laboratory Results 03/27/17 07:05 03/26/17 03/27/17 03/28/17 05:59 05:59 05:59 Intake Total 2400 Balance 2400 PT 15.0 SEC (12.0-15.0) 03/26/17 15:16 INR 1.16 (0.83-1.16) 03/26/17 15:16 ICD10 Worksheet Patient Problems: Problems Problem Status Onset Other injury of other part of small intestine, initial encounter Acute Pneumothorax Acute Rib fracture Acute Scapula fracture Acute Abnormal EKG Acute Palpitations Acute Tachycardia Acute
--- NOTE | 2017-03-27 16:30 | ASDISCHSUM ---
Discharge Information Plan Status:Home with No Needs Medically Cleared to Leave:03/26/2017 Discharge Date:03/27/2017 03:51 PM CM D/C Disposition: ADT D/C Disposition:Home, Routine, Self-Care Projected Discharge Date:03/27/2017 12:00 AM Transportation at D/C: Discharge Delay Reason: Follow-Up Date:03/27/2017 12:00 AM Discharge Slot: Final Diagnosis: Placement Information Patient Contact Information Contact Name:MAGO Relationship: Address:[address] City:[place] Alternate Phone: [facility]/Zip Code:[place] [address] Email: Financial Information Financial Class:HMO and PPO Plans Primary Plan Desc: OUT OF STATE PPO Primary Plan Number:[id number] Secondary Plan Desc: Secondary Plan Number: Assessment Information Intervention Information
== END 2017-03-27 15:51 | disposition home or self-care (01) ==
LOC: INTOOBSV 18:37 → F3N 19:58
PROVIDERS: ADMIT Surgery; ATTEND Surgery
DX: S27.0XXA Traumatic pneumothorax, initial encounter (principal); S22.32XA Fracture of one rib, left side, initial encounter for closed fracture; S42.102A Fracture of unspecified part of scapula, left shoulder, initial encounter for closed fracture; V18.2XXA Unspecified pedal cyclist injured in noncollision transport accident in nontraffic accident, initial encounter
CPT/HCPCS: 70450; 70486; 71010; 71020; 71260; 72125; 73030; 74177; 92523; 97161; G0378; 96374; J1170; J2405; J3010; Q9967